=== PATIENT | male | born 1995 ===

== ENCOUNTER 2019-12-10 17:23 | Emergency (ER) | payer SELFPAY ==
[~2019-12-10] VITALS: Ht 175.3 cm; Wt 60.0 kg
[2019-12-10 17:53] VITALS: BP 108/73
--- NOTE | 2019-12-10 18:07 | NUR ---
BELONGINGS SECURED IN LOCKER AND ROOM EQUIPMENT SECURED BEHIND PULL DOWN DOOR. PT DENIES FEELING SUICIDAL. PT HAS A LACERATION RIGHT 5TH DIGIT THAT HE GOT RIGHT BEFORE GOING TO [facility]. PT COOPERATIVE.
--- NOTE | 2019-12-10 18:39 | NUR ---
XRAY COMPLED OF FINGER.
--- NOTE | 2019-12-10 19:08 | NUR ---
REPORT TO CORNELIUS MCPHERSON
--- NOTE | 2019-12-10 19:14 | NUR ---
Pt wound on right pinky cleaned and dressed. Pt verbalized dc instructions and agrees to follow up. Aleksander returned to patient
== END 2019-12-10 19:17 | disposition home or self-care (01) ==
LOC: ED 18:23
DX: F32.0 Major depressive disorder, single episode, mild (principal); R45.851 Suicidal ideations
CPT/HCPCS: 99283